=== PATIENT | female | born 1950 | race Caucasian/White ===

== ENCOUNTER 2020-04-30 15:33 | Emergency (ER) | payer OTHER, MEDICARE ==
[~2020-04-30] VITALS: Ht 170.2 cm; Wt 62.6 kg
[2020-04-30] MEDS ORDERED: CRESTOR5 MG PO (15:40)
[2020-04-30] MEDS ORDERED: EZETIMIBE10 MG PO (15:40)
[2020-04-30 18:50] VITALS: BP 150/69
== END 2020-04-30 18:50 | disposition home or self-care (01) ==
LOC: ER 15:33
DX: S81.811A Laceration without foreign body, right lower leg, initial encounter (principal); Z79.899 Other long term (current) drug therapy; Z88.1 Allergy status to other antibiotic agents; Z88.5 Allergy status to narcotic agent; W26.8XXA Contact with other sharp object(s), not elsewhere classified, initial encounter; Y93.89 Activity, other specified; Y92.89 Other specified places as the place of occurrence of the external cause; Y99.8 Other external cause status